=== PATIENT | female | born 1975 | race Caucasian/White ===

== ENCOUNTER → 2022-06-15 12:57 | Outpatient (CLI) | payer MEDICAID, SELFPAY ==
--- NOTE | 2022-06-15 12:58 | US_ITS ---
FINAL REPORT TECHNIQUE: Sonographic images of the pelvis were obtained transvaginally. CLINICAL HISTORY: 6 week follow up-- prior us at [facility] FINDINGS: The uterus is anteverted and retroflexed. It measures 9.3 x 4.8 x 5.3 cm. The endometrial stripe measures 2 cm which is thickened. The myometrium is not well visualized due to uterine position. There are multiple nabothian cysts. The left ovary measures 2.6 x 2.3 x 1.8 cm. It is normal in appearance. The right ovary measures 7.8 x 7.6 x 5.6 cm. There is a right adnexal cystic mass which measures at least 8.9 cm and extends toward midline. There are multiple internal echoes. Color imaging to the ovaries is within normal limits. There is no free fluid. IMPRESSION: 1. Thickened endometrium. If the patient is premenopausal, can follow-up in 6 or 10 weeks. If the patient is postmenopausal with bleeding, biopsy recommended. 2. Right adnexal cystic mass, likely of ovarian origin. Prior exam none available. Gynecologic consult recommended. Epithelial neoplasm cannot be excluded. Reviewed, Interpreted and Dictated by Ruthy Monroy MD Transcribed by Marnie Macias Authenticated and [facility]
== END ==
PROVIDERS: PCP Nurse Practitioner Family; Visit Provider Obstetrics & Gynecology
DX: N83.209 Unspecified ovarian cyst, unspecified side (principal)
CPT/HCPCS: 76830

== ENCOUNTER → 2022-06-16 10:12 | Outpatient (CLI) | payer MEDICAID, SELFPAY ==
[2022-06-16 11:47] LABS: Thyroid Stimulating Hormone 1.33 uIU/mL (0.465-4.68)
[2022-06-17 08:38] LABS: Cancer Antigen (CA) 125 13.5 U/mL (0.0-38.1); FSH 21.6 mIU/mL (.)
== END ==
PROVIDERS: PCP Nurse Practitioner Family; Visit Provider Obstetrics & Gynecology
DX: R09.89 Other specified symptoms and signs involving the circulatory and respiratory systems (principal); N83.299 Other ovarian cyst, unspecified side; R10.2 Pelvic and perineal pain; R10.9 Unspecified abdominal pain; R14.0 Abdominal distension (gaseous)
CPT/HCPCS: 36415; 83001; 84443; 86316

== ENCOUNTER → 2022-09-08 09:32 | Outpatient (CLI) | payer MEDICAID, SELFPAY ==
[2022-09-08 10:33] LABS: Basophils # 0.1 K/mm3 (0-0.2); Basophils % 0.5 % (0.1-2.0); Eosinophils # 0.3 K/mm3 (0.0-0.4); Eosinophils % 3.2 % (0.1-12.0); Hematocrit 42.7 % (37.0-47.0); Hemoglobin 13.9 g/dL (12.2-16.2); Lymphocytes # 2.7 K/mm3 (0.7-4.5); Mean Corpuscular HGB Conc 32.7 g/dL (31.8-35.4); Mean Corpuscular Hemoglobin 30.5 pg (27.0-31.2); Mean Corpuscular Volume 93.3 fl (81-99); Mean Platelet Volume 8.7 fl (7.4-10.4); Monocytes # 0.4 K/mm3 (0.1-1.0); Neutrophils # 6.1 K/mm3 (1.8-7.8); Neutrophils % 64.4 % (37.0-80.0); Platelet Count 227 K/mm3 (142-424); Red Blood Count 4.57 M/mm3 (4.20-5.40); Red Cell Distribution Width 14.1 % (11.5-17.5); White Blood Count 9.6 K/mm3 (4.8-10.8)
[2022-09-08 10:57] LABS: Alanine Aminotransferase 21 U/L (12-78); Albumin Level 3.7 g/dl (3.5-5.0); Albumin/Globulin Ratio 1.5 (1.1-1.8); Alkaline Phosphatase 93 U/L (38-126); Anion Gap 14.1 mEq/L (5-15); Aspartate Amino Transferase 23 U/L (14-36); Bilirubin,Total 0.5 mg/dl (0.2-1.3); Blood Urea Nitrogen 11 mg/dl (7-17); Calcium 8.1 mg/dl (8.4-10.2); Carbon Dioxide 30 mmol/L (22.0-30.0); Chloride 99 mmol/L (98-107); Estimated Glomerular Filt Rate 59 ml/min (>60); GFR (African American) 72 ML/MIN (>60); Globulin 2.4 g/dL (1.3-3.2); Glucose 106 mg/dl (74-100); Potassium 4.1 mmoL/L (3.5-5.1); Sodium 139 mmol/L (136-145); Total Protein,Serum 6.1 g/dl (6.3-8.2)
[2022-09-08 11:10] LABS: HCG,Quantitative 7 mIU/ml (0-5.42)
== END ==
PROVIDERS: PCP Nurse Practitioner Family; Visit Provider Obstetrics & Gynecology
DX: R93.89 Abnormal findings on diagnostic imaging of other specified body structures (principal)
CPT/HCPCS: 36415; 80053; 84702; 85025

== ENCOUNTER 2022-09-11 07:10 | Inpatient (IN) | payer MEDICAID, SELFPAY ==
[2022-09-08 10:34] VITALS: BMI 33.1
[2022-09-11] VITALS (26 sets, daily range): BP systolic 102–180; BP diastolic 56–90; PULSE 58–84; RESP 14–22; TEMP 36.1–43; O2SAT 91–99
[2022-09-11 07:02] LABS: Coronavirus 19, PCR Not Detected (NotDetected); Influenza A, PCR Not Detected (NotDetected); Influenza B, PCR Not Detected (NotDetected)
--- NOTE | 2022-09-11 07:09 | EXP.ANES.CKL ---
[facility] Disclaimer: The information contained in this section may have been updated after the patient was seen, as this information can be updated by other users. Medical History Anemia Complex ovarian cyst Endometriosis High blood pressure High cholesterol History of gastroesophageal reflux (GERD) History of heart attack Tobacco abuse Urinary tract infection Surgical History History of delivery History of section History of D&C History of placement of ear tubes Family History Father Cancer Mother Heart attack Social History Smoking Status: Current every day smoker tobacco type: cigarettes packs per day: 2 years smoked: 20 second hand exposure: Yes alcohol intake: never substance use type: denies use current occupational status: employed Travel in the last 8 weeks: None caffeine: Yes [facility] Anesthesia Checklist Patient Identification Patient Identification: Arm Band and Verbal (Name & ) Structural Data Admitted From: Home Planned Operative Procedure/s: [facility] Consent for Planned Operative Procedure(s) Verified: Yes NPO Status Verified Time NPO: 00:00 Chart Verification Results Verified: CBC, BMP, ECG and HCG Additional verifications Anesthesia Reactions: No Hx Blood Transfusions: Yes Blood Transfusion Reaction: No Airway Assessment C-Spine Mobility Assessed: Yes TMJ Mobility Assessed: Yes Dentition: Dentures-poor fitting Neurological Assessment Level of Consciousness: Awake Hx Seizures: No Numbness or tingling in extremities: Yes Anesthesia Plan Anesthesia Risk discussed: Yes Anesthesia Plan: Verified ASA Class: III Anesthesia Type: General
--- NOTE | 2022-09-11 07:13 | ECG_ITS ---
APPROVED REPORT Exam: Resting ECG HR:65 bpm ECG Measurements Heart Rate [address] 165 P 66 QRSd 98 QRS 56 QT 422 T 60 QTc 434 Conclusion SINUS RHYTHM LOW QRS VOLTAGE IN PRECORDIAL LEADS [QRS DEFLECTION < 1.0 mV IN CHEST LEADS] BORDERLINE ECG UNCONFIRMED REPORT Electronically signed by : Lonny Aiken MD 09/11/2022 21:15:07
[2022-09-11 07:25] LABS: HCG Qualitative, Serum Negative (Negative)
--- NOTE | 2022-09-11 07:38 | EXP.HP ---
History of Present Illness *Admission Date: 09/11/22 *Reason for visit:: Hysterectomy *History of present illness: 47 yo Referred by PCP for initial office consult on 05/19/22 regarding left ovarian cyst OB history significant for 2 , 2 CS and 4 SAB (2 with D&C) Last pap smear 8 years ago Multidisciplinary evaluation of abdominal/pelvic pain, bloating and gas over past 4 months: she has referrals to GI and urology in addition to [employer] She reported rapid weight gain and decreased appetite At the time of evaluation in April, LMP was 04/30/22 but menses have been irregular, with previous menstrual period 9 months earlier She denies any family history of breast, uterine or ovarian cancer Pelvic ultrasound 04/07/22 ([facility]): Uterus 5.9x3.7x4.9cm ES 7mm Right ovary obscurred by bowel gas shadow Left?ovary 4.9x3.1x3.2cm, multiple cystic lesions with dominant cyst 7.7x6.4cm? +internal echos c/w endometrioma or hemorrhagic cyst Normal blood flow to both ovaries Follow up ultrasound and labs were ordered Ca-125: 13.5 FSH: 21.6 Pelvic ultrasound 06/15/22 ([facility]): Uterus 9.4x4.8x5.3cm ES 2cm Left ovary 2.6x2.3x1.8cm, normal appearance Right?ovary 7.8x7.6x5.6cm, cystic mass with internal echos 8.9cm Normal flow to both ovaries No free fluid Her back pain has increased and she is feeling more bloated Previous left ovarian cyst no longer seen but she now has large right ovarian cyst CA-125 normal She desires definitive surgical management for ovarian mass and also wants uterus removed because of abnormal bleeding She was advised that endometrial tissue sampling was needed before hysterectomy could be done because of thickened endometrial stripe 20mm Endometrial biopsy and cervical cytology (pap smear) were both negative She is scheduled for hysterectomy with possible BSO She does want to preserve one ovary if normal appearing at time of surgery [facility] Disclaimer: The information contained in this section may have been updated after the patient was seen, as this information can be updated by other users. Medical History Anemia Complex ovarian cyst Endometriosis High blood pressure High cholesterol History of gastroesophageal reflux (GERD) History of heart attack Tobacco abuse Urinary tract infection Surgical History History of delivery History of section History of D&C History of placement of ear tubes Family History Father Cancer Mother Heart attack Social History (Updated 09/11/22 @ 07:10 by Russ Hunter CRNA) Smoking Status: Current every day smoker tobacco type: cigarettes packs per day: 2 years smoked: 20 second hand exposure: Yes alcohol intake: never substance use type: denies use current occupational status: employed Travel in the last 8 weeks: None caffeine: Yes Review of Systems Review of Systems Review of systems:: pertinent systems reviewed and negative unless documented below Constitutional Constitutional: Denies chills, Denies fever(s) and Denies weight loss *Gastrointestinal Gastrointestinal: Reports abdominal pain and Reports bloating *Genitourinary Genitourinary: Reports abnormal menses Meds Home Medications and Allergies Home Medications Medication Instructions Recorded Confirmed Type aspirin 81 mg tablet,delayed 81 mg PO DAILY heart health 05/19/22 09/11/22 History release atorvastatin 80 mg tablet 80 mg PO DAILY Cholesterol 05/19/22 09/11/22 History carvedilol 25 mg tablet 25 mg PO ONCE High blood pressure 05/19/22 09/11/22 History cholecalciferol (vitamin D3) 10 10 mcg PO DAILY Supplement 05/19/22 09/11/22 History mcg (400 unit) tablet ergocalciferol (vitamin D2) 1,250 1,250 mcg PO DAILY Supplement 05/19/22 09/11/22 History mcg (50,000 unit) capsule escitalopram oxalat
--- NOTE | 2022-09-11 07:53 | HMH.PHAINT1 ---
Pharmacy Intervention Comments: home medication list verified using list from outpatient pharmacy
--- NOTE | 2022-09-11 09:38 | SUR.OPER ---
0940- FAMILY UPDATED AT THIS TIME BY CLAUDIA LORA PER MD ORDER. EVERYTHING IS GOING FINE.
--- NOTE | 2022-09-11 10:35 | P.PNANES_ITS ---
[facility] Anesthesia Record Part I Anesthesia Record I Intake, IV Amount: 1,000 Estimated blood loss (mL): 150 Urine output (mL): 100 Blood Pressure: 106/67 SaO2: 92 Pulse Rate: 58 Respiratory Rate: 22 Temperature: 98.8 F Patient is:: Drowsy and Oral/Nasal airway Stable to PACU at:: 10:32
--- NOTE | 2022-09-11 10:48 | EXP.OP.NOTE ---
Date of procedure: 09/11/22 Pre-op Diagnosis:: 1. Pelvic Mass 2. Enlarged Uterus 3. Thickened Endometrium 4. Dysfunctional Uterine Bleeding Post-op Diagnosis:: Same Procedure performed:: Total Abdominal Hysterectomy Right Salpingo-Oophorectomy Left Salpingectomy Surgeon:: Jazmine Borjas MD Show Host Or Hostess(s):: Constance Brewer DO CAP JEWEL PLATE ASSEMBLER:: Russ Hunter Anesthesia: GETA Estimated blood loss (mL): 150 Operative findings:: Grossly normal uterus, bilateral fallopian tubes and left ovary Enlarged, cystic right ovary, 10x8cm Moderate vesico-uterine adhesions Operative note:: The patient was taken to the operating room and general anesthesia was administered without difficulty. She was prepped and draped in the supine position. A Pfannenstiel skin incision was made approximately 2 cm above the pubic symphysis with a scalpel and carried down to the underlying layer of fascia. The fascia was incised in the midline and extended laterally sharply. The rectus muscles were sharply dissected off the fascia and in the midline. The peritoneum was turned and sharply, with good visualization of the underlying structures. The peritoneal incision was extended bluntly. A survey of the patient's pelvis and abdomen revealed a grossly normal uterus and left ovary. The right ovary was not initially visible, but was located deep in the pelvis. There was a 10cm cystic mass encompasing the right ovary. Pelvic washings were collected prior to any further manipulation and this specimen was sent to pathology. At this time, the patient was placed in Trendelenburg and an O'Connoer-O'Reno retractor was placed in the abdomen; the bowel was packed with moist laparotomy sponges. A double tooth tenaculum was placed on the uterine fundus and the uterus was elevated out of the pelvis. No fibroids or other visible uterine lesions were noted. Because of the size of the right ovarian mass, it was helpful to to excise this first in order to have room to operate on the uterus. The cystic mass was elevated out of the pelvis and the Enseal was used to excise this. The entire left fallpian tube and ovary were encompassed within this cystic structure, which had a benign appearance. The left fallopian tube was also excised using the Enseal, but the left ovary was left in place. The round ligaments were identified and transected and suture-ligated. The anterior lip of the broad ligament was dissected medially on both sides and the bladder flap was created digitally. There were moderately dense peritoneal adhesions involving the bladder along the anterior uterus, and both sharp and blunt dissection was performed without complication. The uterine arteries were skeletonized on either side, and were clamped and transected using the Enseal. The bladder flap was further bluntly dissected off the lower uterine segment with excellent hemostasis and without injury to the bladder. The cardinal and uterosacral ligaments were clamped transected and suture ligated on both sides until the vaginal mucosa was entered. The vaginal incision was extended circumferentially with the Jorganson scissors; the uterus and cervix were removed abdominally and sent for pathology, along with the fallopian tubes. The vaginal cuff angles were closed 0 Vicryl [id number] sutures and were transfixed to the ipsilateral cardinal and uterosacral ligaments. The remainder of the vaginal cuff was closed with 0 Vicryl interrupted sutures. The pelvis was copiously irrigated with a solution of sterile water. The cuff was hemostatic but the bladder dissection was slightly raw so Bisi and Surgicel were placed over this surface. All pedicles were reexamined and remained hemostatic. The urine remained clear within the catheter bag. All instruments were removed from the patient's abdomen. The peritoneum was closed with 2-0 Vicryl in a running fashion. The fascia was closed with #1 Vicryl in a running fashion.
--- NOTE | 2022-09-11 11:44 | SUR.PHASEI ---
1112- Report called to GENO Cannon 1115- Patient transported out of PACU to OB room 279 with Jazmine An RN on 2L oxygen and in stable condition. Bed wheels locked and left in the lowest position. All vital signs stable and dressing clean dry and intact. Left patient under the care of GENO Nava.
[2022-09-11 14:51] LABS: Microscopic,Cath URINE MICROSCOPIC (MICROSCOPIC)
[2022-09-11 15:49] LABS: Appearance,Urine/Cath SL CLOUDY (Clear); Bilirubin,Cath Negative (Negative); Blood, Urine/Cath Negative (Negative); Color,Urine/Cath YELLOW (Yellow); Glucose,Urine/Cath (UA) Negative (Negative); Ketones,Urine/Cath Negative (Negative); Leukocyte Esterase,Cath Negative (Negative); Nitrate,Cath POSITIVE (Negative); Protein,Urine/Cath Negative (Negative); Specific Gravity, Urine/Cath 1.015 (1.005-1.030); Urobilinogen,Cath 0.2 EU/dl (0.2)
[2022-09-11 16:13] LABS: Bacteria,Urine/Cath 4+ /lpf; RBC,Urine/Cath Occasional # /hpf (0-3); WBC,Urine/Cath Occasional #/hpf (0-3)
--- NOTE | 2022-09-11 17:24 | PC.NURSE ---
Pt is resting comfortably in the bed at this time. BLT lungs CTA after duneb given. Bowel sounds active in all 4 quadrants. IV infusing well. F/C patent and draining clear urine. Pt denies SOA, headache, or N/V at this time. low transverse surgical dressing C/D/I
--- NOTE | 2022-09-11 20:30 | PC.NURSE ---
Notified Dr. Brewer of patient requesting home meds. She states to order her Carvedilol 25mg PO BID, Pepcid 20mg PO Q HS PRN, and her Lorazepam 1mg Q HS PRN. I made her aware of patient's B/P of 163/78. She also states that I can go ahead and start her PRN PO pain meds now.
[2022-09-12 04:00] VITALS: BP 135/69; PULSE 72; RESP 16; TEMP 37.1; O2SAT 97
--- NOTE | 2022-09-12 04:00 | PC.NURSE ---
Patient resting in bed at this time. Resp even and nonlabored. No s/s of distress noted at this time. IV patent with no redness or edema noted to site, infusing well. SCDs in place. Indwelling catheter in place and draining well. Post-op dressing in place, small amount of serosanguineous drainage note. Patient rates pain 5/10, medication given per MAR. Patient denies any needs at this time. CB in reach
[2022-09-12 05:49] VITALS: PULSE 89
[2022-09-12 06:56] LABS: Hematocrit 32.9 % (37.0-47.0); Hemoglobin 11.1 g/dL (12.2-16.2)
[2022-09-12 07:04] LABS: Anion Gap 10.9 mEq/L (5-15); Blood Urea Nitrogen 11 mg/dl (7-17); Calcium 7.3 mg/dl (8.4-10.2); Carbon Dioxide 29 mmol/L (22.0-30.0); Chloride 102 mmol/L (98-107); Creatinine Clearance Estimated 103 mL/min (50-200); Estimated Glomerular Filt Rate 67 ml/min (>60); GFR (African American) 81 ML/MIN (>60); Glucose 101 mg/dl (74-100); Potassium 3.9 mmoL/L (3.5-5.1); Sodium 138 mmol/L (136-145)
--- NOTE | 2022-09-12 07:07 | PC.NURSE ---
Report given to Angelica Rocha RN
[2022-09-12 07:26] VITALS: BP 141/77; PULSE 77; RESP 17; TEMP 36.4; O2SAT 95
[2022-09-12 07:30] VITALS: O2SAT 95
--- NOTE | 2022-09-12 10:21 | PC.NURSE ---
GOT PT UP AT THIS TIME TO USE BATHROOM. PT AMBULATED WELL WITH X1 ASSIST. HAD 400ML OF U/O. PT UP TO CHAIR AT THIS TIME. LINEN CHANGE PROVIDED AND TRASH EMPTIED. PT PROVIDED WITH UNDERWEAR AND PAD. LIGHT BLEEDING NOTED IN URINE. NO NEEDS OR C/O NOTED AT THIS TIME.
--- NOTE | 2022-09-12 10:49 | PC.NURSE ---
PT UP WALKING HALLS WITH SIG/OTHER AT THIS TIME, TOLERATING VERY WELL.
[2022-09-12 12:10] VITALS: PULSE 68; PULSE 72; O2SAT 97
--- NOTE | 2022-09-12 14:47 | EXP.DC.SUM ---
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 +internal echos c/w endometrioma or hemorrhagic cyst Normal blood flow to both ovaries Follow up ultrasound and labs were ordered Ca-125: 13.5 FSH: 21.6 Pelvic ultrasound 06/15/22 ([facility]): Uterus 9.4x4.8x5.3cm ES 2cm Left ovary 2.6x2.3x1.8cm, normal appearance Right?ovary 7.8x7.6x5.6cm, cystic mass with internal echos 8.9cm Normal flow to both ovaries No free fluid Her back pain has increased and she is feeling more bloated Previous left ovarian cyst no longer seen but she now has large right ovarian cyst CA-125 normal She desires definitive surgical management for ovarian mass and also wants uterus removed because of abnormal bleeding She was advised that endometrial tissue sampling was needed before hysterectomy could be done because of thickened endometrial stripe 20mm Endometrial biopsy and cervical cytology (pap smear) were both negative She is scheduled for hysterectomy with possible BSO She does want to preserve one ovary if normal appearing at time of surgery Hospital Course Hospital Course Hospital Course: Postop course uncomplicated She is discharged home on POD #1, in stable condition, at her request She is ambulating and voiding without difficulty She is tolerating a regular diet Pain control has been sufficient Postop labs reviewed and appropriate She will f/u for staple removal in 4-5 days, and will f/u in office in 2 weeks Exam Data for Last 24 hours Vital signs and Labs for Last 24 Hours: Temp Pulse Resp BP Pulse Ox 97.5 F L 72 17 141/77 H 97 09/12/22 07:26 09/12/22 12:10 09/12/22 07:26 09/12/22 07:26 09/12/22 12:10 Laboratory Results - last 24 hr 09/11/22 09:45: Urine Color Yellow, Urine Appearance Sl cloudy, Urine pH 7.0, Ur Specific [place] 1.015, Urine Protein Negative, Urine Glucose (UA) Negative, Urine Ketones Negative, Urine Blood Negative, Urine Nitrate Positive, Urine Bilirubin Negative, Urine Urobilinogen 0.2, Ur Leukocyte Esterase Negative, Urine RBC Occasional, Urine WBC Occasional, Ur Squamous Epith Cells None, Urine Bacteria 4+ A 09/12/22 06:24: Hgb 11.1 L, Hct 32.9 L 09/12/22 06:24: Sodium 138, Potassium 3.9, Chloride 102, Carbon Dioxide 29, Anion Gap 10.9, BUN 11, Creatinine 0.90, Estimated Creat Clear 103, Estimated GFR 67, Est GFR ( Amer) 81, Glucose 101 H, Calcium 7.3 L I & O for Last 24 hours: Intake & Output 09/10/22 09/11/22 09/12/22 09/13/22 11:59 11:59 11:59 11:59 Intake Total 1000 / 1000 Output Total 1850 / 1850 Balance 1000 / 1000 -1850 / -1850 Microbiology Reports for the Last 24 Hours: Microbiology 09/11/22 09:45 Urine,Catheterized Urine Culture - Preliminary Gram Negative Rods Constitutional Constitutional: no acute distress *Routine HEENT Exam Head: Present normocephalic Eye: Absent conjunctival icterus or scleral injection ENT: Present mucous membranes moist *Routine Neck Exam Neck: Present supple *Routine Respiratory Exam Respiratory: Present CTA bilaterally *Routine Cardiovascular Exam Cardiovascular: Present RRR *Routine Abdominal Exam Abdominal: Pre
--- NOTE | 2022-09-12 15:35 | PC.NURSE ---
A&OX4. TOLERATING RA WELL. PT HAS C/O PAIN AND REQUESTED PAIN MEDICATION X1. EFFECTIVENESS NOTED. HAS BEEN RESTING IN BED. INCISION CLEANED AND LEFT ANTHONY. CDI. TOLERATED WELL. NO OTHER NEEDS NOTED, VSS.
[2022-09-13 08:35] VITALS: BP 134/82; PULSE 72; TEMP 37.1
--- NOTE | 2022-09-13 08:35 | P.PNANES_ITS ---
[facility] Anesthesia Record Part II Anesthesia Record Part II Discharge Time: 11:12 Destination: Obstetric PACU nurse assessment reviewed?: Yes Patient Condition:: Good Anesthesia Complications:: None Swallowing reflex intact?: Yes Cyanosis?: No Blood Pressure: 134/82 Pulse Rate: 72 Temperature: 98.8 F Mental Status: Alert & Oriented Pain level:: 4 Nausea and/or vomitting:: None Intake, IV Amount: 0
== END 2022-09-12 15:50 | disposition home or self-care (01) | DRG 743 ==
LOC: OB 15:26
PROVIDERS: Admitting Provider Obstetrics & Gynecology; PCP Nurse Practitioner Family; Visit Provider Obstetrics & Gynecology
PROC: 0UT90ZZ Resection of Uterus, Open Approach (ICD-10-PCS; CPT 58150; principal; 2022-09-11 07:30)
DX: N85.2 Hypertrophy of uterus (principal); N93.8 Other specified abnormal uterine and vaginal bleeding; R93.89 Abnormal findings on diagnostic imaging of other specified body structures; F17.210 Nicotine dependence, cigarettes, uncomplicated; I25.2 Old myocardial infarction; E78.00 Pure hypercholesterolemia, unspecified; I10 Essential (primary) hypertension; K21.9 Gastro-esophageal reflux disease without esophagitis
CPT/HCPCS: 58150; 36415; 80048; 80053; 81001; 84702; 84703; 85014; 85018; 85025; 87086; 87088; 87186; 87636; 93005; 94640; 94760; 94761; 96374; C9803; J0131; J2405; U0003; U0005

== ENCOUNTER 2022-10-21 12:41 | Emergency (ER) | payer MEDICAID, SELFPAY ==
[2022-10-21] VITALS (10 sets, daily range): BP systolic 108–136; BP diastolic 65–91; PULSE 74–86; RESP 16–18; TEMP 36.7; O2SAT 93–99; BMI 31.8
--- NOTE | 2022-10-21 13:31 | PC.NURSE ---
family at BS
--- NOTE | 2022-10-21 13:47 | CA_ITS ---
FINAL REPORT CLINICAL HISTORY: recent surgery hysterectomy several weeks ago, bilateral redness and swelling LE,pt on asa FINDINGS: Color Doppler, duplex Doppler and compression sonography of the bilateral lower extremities was performed. There is no evidence of deep venous thrombosis from the level of the groin to the calf. The deep veins are patent and compressible. IMPRESSION: No evidence of deep venous thrombosis bilateral lower extremities. Reviewed, Interpreted and Dictated by Manjinder Pacheco III, MD Transcribed by Tami Ardon Authenticated and [facility]
--- NOTE | 2022-10-21 14:14 | PC.NURSE ---
pt assisted to the bathroom standby assist
--- NOTE | 2022-10-21 14:17 | HMH.EDGENADL ---
Discharge Plan Disposition Patient Disposition: Home, Self-Care Condition: Good Chief Complaint: Recheck/Abnormal Lab/Rx Prescriptions Prescriptions: No Action lorazepam 1 mg tablet 1 mg PO BID PRN (Reason: Anxiety) Label Comments: take 1 tablet by mouth twice a day aspirin 81 mg tablet,delayed release (DR/EC) 81 mg PO DAILY Label Comments: TAKE ONE TABLET EVERY DAY atorvastatin 80 mg tablet 80 mg PO HS Label Comments: TAKE ONE TABLET AT BEDTIME levocetirizine 5 mg tablet 5 mg PO PM escitalopram oxalate 20 mg tablet 20 mg PO BID Label Comments: take 1 tablet by mouth twice daily vitamin B complex Capsule 1 cap PO DAILY Label Comments: take 1 capsule by mouth as directed once a day cholecalciferol (vitamin D3) 10 mcg (400 unit) tablet 10 mcg PO DAILY ergocalciferol (vitamin D2) 1,250 mcg (50,000 unit) capsule 1,250 mcg PO WEEKLY losartan 100 mg tablet 100 mg PO DAILY carvedilol 25 mg tablet 25 mg PO BID ketotifen fumarate [Eye Itch Relief] 0.025 % (0.035 %) drops 1 drp Eye-Both BID pantoprazole 40 mg tablet,delayed release (DR/EC) 40 mg PO DAILY Label Comments: TAKE ONE TABLET BY MOUTH ONCE DAILY nystatin 100,000 unit/gram powder 1 applic topical TID PRN (Reason: itch) Qty: 30 3RF cephalexin 500 mg tablet 500 mg PO TID 7 Days Qty: 21 0RF nitrofurantoin monohyd/m-cryst [Macrobid] 100 mg capsule 100 mg PO BID 14 Days Qty: 28 0RF Rx Instructions: must administer with a meal/food famotidine 20 mg tablet 20 mg PO HSP PRN (Reason: Acid Reflux) Label Comments: TAKE 1 tablet at bedtime as needed Once a day acetaminophen 325 mg Tablet 650 mg PO Q4HP PRN (Reason: Mild Pain) Qty: 0 0RF Referrals Follow up/Referrals: Provider,Referral, MD [Primary Care Provider] - See instructions Clinical Impressions Clinical Impression: Rash and nonspecific skin eruption Discharge ED Provider: [facility] Adult HPI General Chief complaint: Recheck/Abnormal Lab/Rx Stated complaint: Post op hysterectomy 5/15 Knot on both legs Time Seen by Provider: 10/21/22 12:45 Mode of Arrival: Ambulatory Source of Information: Patient Limitations: No Limitations Description of Symptoms (Recalled from ER Triage Doc. by RN): 47 yo F presents to ED with c/o knots on legs. pt reports that yesterday she noticed knots on her bilateral lower legs, left knee, right shoulder. pt reports that she had hysterectomy 09/11/[address] clayton. History of Present Illness HPI narrative: This is a 47-year-old female with history of recent hysterectomy on 09/11 presenting with subcutaneous nodules. Patient states after hysterectomy, patient was seen by prompt care rn. Was diagnosed with UTI. Started Macrobid about 10 days prior to arrival. Today, 10/21, developed nodules on bilateral lower extremities as well as right shoulder. Not painful, just red and indurated. No history of blood clots in the past, not currently on anticoagulation. No fevers or chills, nausea or vomiting, or systemic symptoms. No lymphadenopathy, or any other concerns. Nodules are asymptomatic. Related Data Home Medications Medication Instructions Recorded Confirmed aspirin 81 mg tablet,delayed 81 mg PO DAILY Heart disease 05/19/22 10/19/22 release atorvastatin 80 mg tablet 80 mg PO HS Cholesterol 05/19/22 10/19/22 carvedilol 25 mg tablet 25 mg PO BID High blood pressure 05/19/22 10/19/22 cholecalciferol (vitamin D3) 10 10 mcg PO DAILY Supplement 05/19/22 10/19/22 mcg (400 unit) tablet ergocalciferol (vitamin D2) 1,250 1,250 mcg PO WEEKLY Supplement 05/19/22 10/19/22 mcg (50,000 unit) capsule escitalopram oxalate 20 mg tablet 20 mg PO BID anxiety 05/19/22 10/19/22 ketotifen fumarate 0.025 % (0.035 1 drp Eye-Both BID Allergy symptoms 05/19/22 10/19/22 %) eye drops (Eye Itch Relief) levocetirizine 5 mg ta
--- NOTE | 2022-10-21 14:25 | PC.NURSE ---
respiratory called for doppler bilateral leg 1427
[2022-10-21 14:31] LABS: Appearance,Urine CLEAR (Clear); Bilirubin,Urine Negative (Negative); Blood, Urine Negative (Negative); Color,Urine YELLOW (Yellow); Glucose,Urine (UA) Negative (Negative); Ketones,Urine Negative (Negative); Leukocyte Esterase,Urine Negative (Negative); Microscopic, Urine URINE MICROSCOPIC (MICROSCOPIC); Nitrate,Urine Negative (Negative); Protein,Urine Negative (Negative); Specific Gravity, Urine 1.015 (1.005-1.030); Urobilinogen,Urine 0.2 EU/dl (0.2)
[2022-10-21 14:41] LABS: Squamous Epithelial Cell,Urine Occasional #/hpf (0-5); WBC,Urine Occasional #/hpf (0-3)
[2022-10-21 15:06] LABS: Basophils % 0.3 % (0.1-2.0); Eosinophils # 0.2 K/mm3 (0.0-0.4); Eosinophils % 1.5 % (0.1-12.0); Hematocrit 40.8 % (37.0-47.0); Hemoglobin 13.6 g/dL (12.2-16.2); Lymphocytes # 2.6 K/mm3 (0.7-4.5); Lymphocytes % 20.9 % (10-50); Mean Corpuscular HGB Conc 33.2 g/dL (31.8-35.4); Mean Corpuscular Hemoglobin 29.8 pg (27.0-31.2); Mean Corpuscular Volume 89.8 fl (81-99); Mean Platelet Volume 8.9 fl (7.4-10.4); Monocytes # 0.5 K/mm3 (0.1-1.0); Monocytes % 4.3 % (1.7-9.3); Neutrophils # 9.2 K/mm3 (1.8-7.8); Platelet Count 217 K/mm3 (142-424); Red Blood Count 4.54 M/mm3 (4.20-5.40); Red Cell Distribution Width 14.6 % (11.5-17.5); White Blood Count 12.6 K/mm3 (4.8-10.8)
[2022-10-21 15:14] LABS: Alanine Aminotransferase 24 U/L (12-78); Albumin/Globulin Ratio 1.4 (1.1-1.8); Alkaline Phosphatase 124 U/L (38-126); Anion Gap 14.9 mEq/L (5-15); Aspartate Amino Transferase 27 U/L (14-36); Bilirubin,Total 0.6 mg/dl (0.2-1.3); Blood Urea Nitrogen 10 mg/dl (7-17); Calcium 8.6 mg/dl (8.4-10.2); Carbon Dioxide 27 mmol/L (22.0-30.0); Chloride 103 mmol/L (98-107); Creatinine Clearance Estimated 128 mL/min (50-200); Estimated Glomerular Filt Rate 90 ml/min (>60); GFR (African American) 109 ML/MIN (>60); Globulin 2.9 g/dL (1.3-3.2); Glucose 85 mg/dl (74-100); Potassium 3.9 mmoL/L (3.5-5.1); Sodium 141 mmol/L (136-145); Total Protein,Serum 6.9 g/dl (6.3-8.2)
[2022-10-21 15:20] LABS: C-Reactive Protein 3.5 mg/L (0-4)
[2022-10-21 15:33] LABS: Erythrocyte Sedimentation Rate 14 mm/hr (0-20)
[2022-10-27 14:13] LABS: Lyme B. burgdorferi PCR Blood Negative (Negative)
== END 2022-10-21 16:45 | disposition home or self-care (01) ==
PROVIDERS: Emergency Provider Emergency Medicine
DX: R21 Rash and other nonspecific skin eruption (principal); F17.210 Nicotine dependence, cigarettes, uncomplicated; I10 Essential (primary) hypertension; E78.5 Hyperlipidemia, unspecified; K21.9 Gastro-esophageal reflux disease without esophagitis
CPT/HCPCS: 80053; 81001; 85025; 85651; 86140; 87476; 93970; 96374; 99284